=== PATIENT | male | born 1985 | race Caucasian/White ===

== ENCOUNTER 2018-07-19 13:04 | Emergency (ER) | payer SELFPAY ==
[2018-07-19] MEDS ORDERED: Ciprofloxacin 0.3% Ophth Soln 2.5 ML Bottle ONE (13:10)
[2018-07-19] MEDS ORDERED: Tetracaine 0.5% 2 ML Bottle ONE (13:10)
--- NOTE | 2018-07-20 07:42 | EDM.PDOC ---
ED HPI GENERAL MEDICAL PROBLEM - General Chief Complaint: ENT Problem Stated Complaint: foreign body in eye Time Seen by Provider: 07/19/18 13:05 Source of Information: Reports: Patient History Limitations: Reports: No Limitations - History of Present Illness INITIAL COMMENTS - FREE TEXT/NARRATIVE: This is a 33yo M here for concerns of a foreign body in the left eye. He denies any trauma and states he was drinking with friends last night and woke up this am with a sensation of a foreign body in the left eye. He felt it may be stuck on his eyelid. He denies any other issues but states he has to hold his eye with his finger due to the pain. Onset: Sudden Location: Reports: Other (left eye) Quality: Reports: Burning Severity: Severe Improves with: Reports: None Worsens with: Reports: None Left Eye Pain Score (Numeric/FACES): 5 - Related Data Allergies Allergy/AdvReac Type Severity Reaction Status Date / Time No Known Allergies Allergy Verified 07/19/18 13:26 Home Meds: Home Meds NK [No Known Home Meds] 07/19/18 [History] ED ROS GENERAL - Review of Systems Review Of Systems: ROS reveals no pertinent complaints other than HPI. ED EXAM GENERAL W FULL EYE - Physical Exam Exam: See Below Exam Limited By: No Limitations General Appearance: Alert, WD/WN, No Apparent Distress Eye Exam: Left Eye: Other (tetracine used in left eye), Bilateral Eye: EOMI, PERRL Eyelids: Bilateral: Normal Appearance Conjunctiva & Sclera: Bilateral: Normal Appearance Cornea Exam: Left: Corneal Abrasion (7-8 oclock lesion 4mm in diameter) Extraocular Movements: Bilateral: Intact Pupils: Normal Accommodation Pupillary Size: Bilateral: 5 mm Pupillary Reaction: Bilateral: Brisk Anterior Chamber: Bilateral: Normal Appearance Posterior Chamber: Bilateral: Normal Funduscopic Ears: Normal External Exam Nose: Normal Inspection Throat/Mouth: Normal Inspection Head: Atraumatic, Normocephalic Neck: Normal Inspection Respiratory/Chest: No Respiratory Distress Cardiovascular: Normal Peripheral Pulses GI/Abdominal: Normal Bowel Sounds Back Exam: Normal Inspection Extremities: Normal Inspection Neurological: Alert, Oriented, CN II-XII Intact Psychiatric: Normal Affect, Normal Mood Skin Exam: Warm, Dry, Intact Course - Vital Signs Last Recorded V/S: Last Vital Signs Temp 37.0 C 07/19/18 13:41 Pulse 84 07/19/18 13:41 Resp 16 07/19/18 13:41 BP 132/84 07/19/18 13:41 Pulse Ox Departure - Departure Time of Disposition: 13:25 Disposition: Home, Self-Care 01 Condition: Good Clinical Impression: Corneal abrasion, left Qualifiers: Encounter type: initial encounter Qualified Code(s): S05.02XA - Injury of conjunctiva and corneal abrasion without foreign body, left eye, initial encounter - Discharge Information Instructions: Ciprofloxacin eye solution, Corneal Abrasion, [id number] Forms: ED Department Discharge Care Plan Goals: Take cirpo drops in affected eye x 7 days. - Problem List & Annotations (1) Corneal abrasion, left SNOMED Code(s): 61456437381254426 Code(s): S05.02XA - INJ CONJUNCTIVA AND CORNEAL ABRASION W/O FB, LEFT EYE, INIT Status: Acute Priority: High Qualifiers: Encounter type: initial encounter Qualified Code(s): S05.02XA - Injury of conjunctiva and corneal abrasion without foreign body, left eye, initial encounter - Problem List Review Problem List Initiated/Reviewed/Updated: Yes - Assessment/Plan Plan: Counseled on use of antibiotic drops for the left eye. Discussed care of the left eye and close f/u. Patient doing well since use of tetracaine eye drops and denies any visual issues now that he is able to open the eye. Counseled on pain management and supportive care as he will not have tetracaine at home. Counseled on close f/u with PCP after ER. Discussed further f/u if symptoms return or persist/worsen. Patient agrees with f/u as directed and as needed.
== END 2018-07-19 13:15 | disposition home or self-care (01) ==
LOC: LB.ED 13:04
DX: S05.02XA Injury of conjunctiva and corneal abrasion without foreign body, left eye, initial encounter (principal); X58.XXXA Exposure to other specified factors, initial encounter
CPT/HCPCS: 99283; A9270-GY